=== PATIENT | female | born 2000 | race Caucasian/White ===

== ENCOUNTER 2023-02-11 14:51 | Emergency (ER) | payer MEDICAID ==
[~2023-02-11] VITALS: Ht 177.8 cm; Wt 127.0 kg
[2023-02-11 15:20] VITALS: BP 145/76; PULSE 77; RESP 18; TEMP 98.4; O2SAT 100
== END 2023-02-11 21:22 | disposition left against medical advice (07) ==
LOC: ER 15:53
DX: Z53.21 Procedure and treatment not carried out due to patient leaving prior to being seen by health care provider (principal)
CPT/HCPCS: 99281

== ENCOUNTER 2023-04-29 08:35 | Emergency (ER) | payer MEDICAID ==
[~2023-04-29] VITALS: Ht 177.8 cm; Wt 113.0 kg
[2023-04-29 08:42] VITALS: O2SAT 100
[2023-04-29 09:46] LABS: CLARITY URINE TURBID (CLEAR); COLOR URINE YELLOW (YELLOW); GLUCOSE URINE NEGATIVE (NEGATIVE); KETONES URINE NEGATIVE (NEGATIVE); LEUKOCYTE ESTERASE URINE 3+ (NEGATIVE); NITRITE URINE NEGATIVE (NEGATIVE); OCCULT BLOOD URINE 1+ (NEGATIVE); PH URINE 5.5 (4.5-8.0); PROTEIN URINE TRACE (NEGATIVE); SPECIFIC GRAVITY URINE 1.021 (1.005-1.030)
[2023-04-29 09:50] LABS: BASOPHILS % 0.6 % (0.0-2.0); EOSINOPHILS % 0.4 % (0.0-5.0); HEMATOCRIT. 40.6 % (36.0-48.0); HEMOGLOBIN. 13.6 g/dL (12.0-16.0); LYMPHOCYTES % 26.8 % (20.0-50.0); MEAN CORPUSCULAR HEMOGLOBIN 28.4 pg (28.0-32.0); MEAN CORPUSCULAR HGB CONC 33.4 g/dL (31.0-37.0); MEAN PLATELET VOLUME 8.6 fl (7.4-10.4); MONOCYTES % 8.7 % (2.0-8.0); NEUTROPHILS % 63.5 % (40.0-76.0); PLATELET 260 x1000/uL (130-400); RED BLOOD CELL COUNT 4.78 mill/uL (4.2-5.4); RED CELL DISTRIBUTION WIDTH 14.5 % (11.6-14.6); WHITE BLOOD COUNT 5.8 x1000/uL (4.5-11.0)
[2023-04-29] MEDS ORDERED: MAGNESIUM/ALUMINUM HYDROXIDE/SIMETHICONE 30ML UDC PO STA (09:56)
[2023-04-29] MEDS ORDERED: ONDANSETRON 4MG ODT PO STA (09:56)
[2023-04-29 10:08] LABS: BACTERIA URINE 4+; RBC URINE 0-2 /hpf (0-2); SQUAMOUS EPITHELIAL CELL URINE 2+ /lpf (RARE/1+); WBC URINE 50-100 /hpf (0-2); YEAST URINE NONE SEEN
[2023-04-29 11:05] LABS: CHLORIDE 112 mEq/L (98-107); INDEX HEMOLYSI 1 (1-3); INDEX ICTERIC 1 (1-4); INDEX LIPEMIC 1 (1-3); POTASSIUM 3.8 mEq/L (3.5-5.1); SODIUM 141 mEq/L (136-145)
[2023-04-29 11:13] LABS: ALANINE AMINOTRANSFERASE 21 IU/L (13-61); ALBUMIN 4.1 g/dL (3.4-5.0); ASPARTATE AMINOTRANSFERASE 13 IU/L (15-37); BILIRUBIN TOTAL 1.2 mg/dL (0.1-1.0); CARBON DIOXIDE 27 mEq/L (21-32); CREATININE 0.9 mg/dL (0.6-1.3); GLUCOSE 88 mg/dL (70-105); PROTEIN TOTAL 8.3 g/dL (6.0-8.3); UREA NITROGEN BLOOD 13 mg/dL (7-21)
[2023-04-29] MEDS ORDERED: NITR-87 MT (11:41)
[2023-04-29 12:14] VITALS: BP 101/64; PULSE 75; RESP 16; TEMP 98.9
== END 2023-04-29 12:15 | disposition home or self-care (01) ==
LOC: ER 08:35
DX: N39.0 Urinary tract infection, site not specified (principal); R10.816 Epigastric abdominal tenderness
CPT/HCPCS: 99284; 76705; 80053; 81003; 81025; 83690; 85025; 87086; 36415; Q0162

== ENCOUNTER 2023-05-09 08:55 | Emergency (ER) | payer MEDICAID ==
[~2023-05-09] VITALS: Ht 177.8 cm; Wt 114.0 kg
[~2023-05-09 08:55] MED LIST: NITR-87 MT
[2023-05-09 09:00] VITALS: O2SAT 96
[2023-05-09] MEDS ORDERED: DIF15 MT (09:35)
[2023-05-09] MEDS ORDERED: CARB-274 EACH EAR (09:35)
[2023-05-09 09:47] VITALS: BP 124/78; PULSE 76; RESP 17; TEMP 98.9
== END 2023-05-09 09:48 | disposition home or self-care (01) ==
LOC: ER 09:22
DX: H61.23 Impacted cerumen, bilateral (principal); B37.89 Other sites of candidiasis
CPT/HCPCS: 81025; 99283

== ENCOUNTER 2023-05-19 10:49 | Emergency (ER) | payer MEDICAID ==
[~2023-05-19] VITALS: Ht 177.8 cm; Wt 114.0 kg
[~2023-05-19 10:49] MED LIST changes: +CARB-274 EACH EAR; +DIF15 MT
[2023-05-19 11:20] VITALS: BP 133/86; PULSE 81; RESP 18; TEMP 97.8; O2SAT 100
[2023-05-19] MEDS ORDERED: CEFTRIAXONE SODIUM 500 MG/VIAL IM ONE (13:00)
[2023-05-19] MEDS ORDERED: DOXY100C5 MT (13:01)
[2023-05-19 18:09] LABS: CLARITY URINE CLOUDY (CLEAR); COLOR URINE ORANGE (YELLOW); GLUCOSE URINE NEGATIVE (NEGATIVE); KETONES URINE NEGATIVE (NEGATIVE); LEUKOCYTE ESTERASE URINE 2+ (NEGATIVE); NITRITE URINE NEGATIVE (NEGATIVE); OCCULT BLOOD URINE 3+ (NEGATIVE); PH URINE 5.5 (4.5-8.0); PROTEIN URINE 1+ (NEGATIVE); SPECIFIC GRAVITY URINE 1.022 (1.005-1.030)
[2023-05-19 18:41] LABS: RBC URINE TNTC /hpf (0-2)
[2023-05-19 18:42] LABS: BACTERIA URINE NONE SEEN; SQUAMOUS EPITHELIAL CELL URINE FEW /lpf (RARE/1+)
[2023-05-22 04:07] LABS: CHLAMYDIA TRACHOMATIS NAA Negative (Negative); NEISSERIA GONORRHOEAE NAA Positive (Negative)
== END 2023-05-19 13:27 | disposition home or self-care (01) ==
LOC: ER 11:01
DX: N94.6 Dysmenorrhea, unspecified (principal)
CPT/HCPCS: 99285; 87491; 87591; 81003; 87210; 96372; J0696

== ENCOUNTER 2023-07-07 11:02 | Emergency (ER) | payer MEDICAID ==
[~2023-07-07] VITALS: Ht 177.8 cm; Wt 123.8 kg
[~2023-07-07 11:02] MED LIST changes: +DOXY100C5 MT
[2023-07-07 11:38] VITALS: BP 140/83; PULSE 82; RESP 16; TEMP 98; O2SAT 99
[2023-07-07] MEDS ORDERED: TOPUD PO (14:23)
[2023-07-07] MEDS ORDERED: BENZ1LOZ73 MT (14:23)
[2023-07-07] MEDS ORDERED: TUSSL MT (14:23)
== END 2023-07-07 15:51 | disposition home or self-care (01) ==
LOC: ER 11:02
DX: B34.9 Viral infection, unspecified (principal)
CPT/HCPCS: 99282

== ENCOUNTER 2023-09-12 18:50 | Emergency (ER) | payer MEDICAID ==
[~2023-09-12] VITALS: Ht 177.8 cm; Wt 127.0 kg
[~2023-09-12 18:50] MED LIST changes: +BENZ1LOZ73 MT; +TOPUD PO; +TUSSL MT
[2023-09-12 19:18] VITALS: RESP 16; O2SAT 100
[2023-09-12 20:02] LABS: BASOPHILS % 0.4 % (0.0-2.0); EOSINOPHILS % 1.5 % (0.0-5.0); HEMATOCRIT. 37.7 % (36.0-48.0); HEMOGLOBIN. 12.5 g/dL (12.0-16.0); LYMPHOCYTES % 28.7 % (20.0-50.0); MEAN CORPUSCULAR HEMOGLOBIN 28.5 pg (28.0-32.0); MEAN CORPUSCULAR HGB CONC 33.2 g/dL (31.0-37.0); MEAN CORPUSCULAR VOLUME 85.8 fL (81.0-99.0); MEAN PLATELET VOLUME 8.7 fl (7.4-10.4); MONOCYTES % 6.2 % (2.0-8.0); NEUTROPHILS % 63.2 % (40.0-76.0); PLATELET 227 x1000/uL (130-400); RED BLOOD CELL COUNT 4.39 mill/uL (4.2-5.4); WHITE BLOOD COUNT 5.6 x1000/uL (4.5-11.0)
[2023-09-12 20:13] LABS: HCG SCREEN NEGATIVE
[2023-09-12 20:16] LABS: ALANINE AMINOTRANSFERASE 19 IU/L (10-49); ALBUMIN 4.5 g/dL (3.2-4.8); ASPARTATE AMINOTRANSFERASE 20 IU/L (<34); BILIRUBIN TOTAL 0.3 mg/dL (0.1-1.0); CALCIUM 8.6 mg/dL (8.7-10.4); CARBON DIOXIDE 26 mEq/L (21-32); CHLORIDE 110 mEq/L (98-107); CREATININE 0.9 mg/dL (0.6-1.0); GLUCOSE 88 mg/dL (70-105); POTASSIUM 4.2 mEq/L (3.5-5.1); PROTEIN TOTAL 7.6 g/dL (6.0-8.3); SODIUM 142 mEq/L (136-145); UREA NITROGEN BLOOD 10 mg/dL (9-23)
[2023-09-12 21:57] VITALS: BP 143/92; PULSE 74; TEMP 98.7
== END 2023-09-12 22:00 | disposition home or self-care (01) ==
LOC: ER 18:50
DX: N92.0 Excessive and frequent menstruation with regular cycle (principal)
CPT/HCPCS: 36415; 80053; 84703; 85025; 86850; 86900; 93005; 99284

== ENCOUNTER 2023-11-11 18:51 | Emergency (ER) | payer SELFPAY ==
[~2023-11-11] VITALS: Ht 180.3 cm; Wt 127.0 kg
[2023-11-11] MEDS ORDERED: ERYT1OIN6 EACHEYE (20:42)
[2023-11-11 20:57] VITALS: BP 148/84; PULSE 86; RESP 18; TEMP 97.9
== END 2023-11-11 21:03 | disposition home or self-care (01) ==
LOC: ER 18:51
DX: H10.9 Unspecified conjunctivitis (principal)
CPT/HCPCS: 99283